=== PATIENT | male | born 1960 | race Caucasian/White ===

== ENCOUNTER 2018-07-09 20:33 | Emergency (ER) | payer BC ==
[2018-07-09] MEDS ORDERED: Ketorolac Tromethamine 30 MG/ML VIAL ONE (21:05)
== END 2018-07-09 21:30 | disposition home or self-care (01) ==
LOC: SCSER 20:33
DX: R19.7 Diarrhea, unspecified (principal); I10 Essential (primary) hypertension; Z79.899 Other long term (current) drug therapy
CPT/HCPCS: 87045; 87046; 87324; 87449; 87899; 96372; J1885